=== PATIENT | male | born 1965 | race Caucasian/White ===

== ENCOUNTER 2018-12-31 12:28 | Outpatient (CLI) | payer OTHER ==
[~2018-12-31 12:28] MED LIST: BACL-19 PO; GABA300C10 PO; PRED20TA PO
[2018-12-31] MEDS ORDERED: FLUMAZENIL 0.1 MG/1 ML, 5ML ONE (13:03)
[2018-12-31] MEDS ORDERED: FENTANYL PF 100 MCG/2ML ONE ×2 (13:03)
[2018-12-31] MEDS ORDERED: NALOXONE 1 MG/ML, 2ML ONE (13:03)
[2018-12-31] MEDS ORDERED: MIDAZOLAM 1 MG/ML, 5ML ONE (13:03)
[2018-12-31] MEDS ORDERED: GADOBUTROL 15 MMOL/15 ML VIAL ONE (13:13)
== END 2018-12-31 23:59 | disposition home or self-care (01) ==
LOC: RAD 12:28
PROVIDERS: ATTEND Radiology Diagnostic Radiology
DX: G44.321 Chronic post-traumatic headache, intractable (principal)
CPT/HCPCS: 70546; 70553; 99156; 99157; A9585; J2250; J3010; J2310